=== PATIENT | male | born 1990 | race Caucasian/White ===

== ENCOUNTER 2016-11-30 00:14 | Emergency (ER) | payer BC ==
[2016-11-30] MEDS ORDERED: ALBUTEROL 0.083% 2.5 MG/3 ML VIAL.NEB INHALATION ONE (00:34)
[2016-11-30] MEDS ORDERED: IPRATROPIUM/ALBUTEROL 0.5/3 MG 3 ML AMPUL.NEB INHALATION ONE (01:32)
[2016-11-30] MEDS ORDERED: predniSONE 10 MG TABLET PO ONE (01:32)
--- NOTE | 2016-11-30 02:15 | ER NURSING DOCUMENTATION ---
Nurse's Notes [facility] Name:Jose Antonio Hall Age:26 yrs Sex:Male :1990 Arrival Date:11/30/2016 Time:00:14 Bed1 Private MD:Physician, No Diagnosis:Asthma with Acute Exacerbation Presentation: 11/30 00:16 Presenting complaint: Patient states: pt states he has been short of breath since bw2 arriving from [place]. pt states he has a history of asthma and he forgot his inhaler. Transition of care: patient was not received from another setting of care. 00:16 Acuity: BUFFY 2 bw2 00:16 Method Of Arrival: Walk In bw2 Triage Assessment: 00:23 General: Appears in no apparent distress, Behavior is agitated, anxious. Pain: Denies bw2 pain. Respiratory: Reports shortness of breath at rest Onset: The symptoms/episode began/occurred gradually, the patient has mild shortness of breath. Historical: - Allergies: No known drug Allergies; - Home Meds: 1. Albuterol Inhl - Tetanus: < 10 years. - Ebola Screening: : Patient negative for fever greater than or equal to 101.5 degrees Fahrenheit, and additional compatible Ebola Virus Disease symptoms. Patient denies exposure to infectious person. Patient denies travel to an Ebola-affected area in the 21 days before illness onset. No symptoms or risks identified at this time. . - Immunization history: Flu Vaccine < 1 year Unable to Obtain. - Social history: Smoking status: Patient states was never smoker of tobacco. Screenin:04 Infectious Disease Risk None. Abuse screen: Denies threats or abuse. Nutritional bw2 screening: No deficits noted. Assessment: 02:03 See Triage Assessment done by same RN. Cardiovascular: No deficits noted. Rhythm is bw2 regular. Respiratory: Airway is patent Respiratory effort is labored, Breath sounds are diminished bilaterally. Reports shortness of breath at rest. Vital Signs: 00:23 BP 134 / 90; Pulse 86; Resp 19; Temp 98; Pulse Ox 93% on R/A; Weight 86.18 kg; Pain bw2 0/10; 02:14 BP 133 / 62; Pulse 81; Resp 18; Temp 98(O); Pulse Ox 92% on R/A; Pain 0/10; bw2 ED Course: 00:16 Patient arrived in ED. em2 00:16 Physician, Erica is Private Physician. em2 00:16 Inez Angel is Primary Nurse. bw2 00:17 Triage completed. bw2 00:52 Ramesh Chance MD is Attending Physician. cd 02:04 Valuables Remains with patient Side rails up X2. bw2 11:21 Notified Pharmacy called stating that the dispense tablet number did not match the la order. per Dr Ty valencia to increase dispense tablet number to match the order. Prednisone 2.5 tablets per day- dispense 13 tablets and to disregard .5 tablet. Administered Medications: 01:00 Drug: DuoNeb (Albuterol 2.5 mg, Atrovent 0.5 mg); 3 ml; Route: Nebulizer; bw2 01:41 Follow up: Response: No adverse reaction bw2 01:22 Drug: DuoNeb (Albuterol 2.5 mg, Atrovent 0.5 mg); 3 ml; Route: Nebulizer; bw2 01:41 Follow up: Response: No adverse reaction bw2 01:23 Drug: predniSONE 50 mg; Route: PO; bw2 01:41 Follow up: Response: No adverse reaction bw2 02:13 Drug: Ventolin 2 puffs; Route: Inhalation; bw2 02:14 Follow up: Response: Pharmacy closed - take home med pack bw2 Outcome: 02:05 Discharge ordered by . cd 02:14 Discharged to home ambulatory, with family. bw2 02:14 Condition: good 02:14 Discharge Assessment: Patient awake, alert and oriented x 3. No cognitive and/or functional deficits noted. Patient verbalized understanding of disposition instructions. 02:14 Discharge instructions given to patient, Parent Instructed on discharge instructions, follow up and referral plans. medication usage, Demonstrated understanding of instructions, medications, Prescriptions given X 1. 02:15 Patient left the ED. bw2 Signatures: Ramesh Chance MD MD cd Meinking-brittany, Carlene-brittany em2 Lorena Seay Beth bw2
--- NOTE | 2016-11-30 02:15 | ER PHYSICIAN DOCUMENTATION ---
Physician Documentation [facility] Name:Jose Antonio Hall Age:26 yrs Sex:Male :1990 Arrival Date:11/30/2016 Time:00:14 Bed1 Private MD:Physician, No ED Ramesh Lemus Disposition: 11/30 02:04 Critical Care: not applicable. cd 02:10 Chart complete. Disposition: 11/30/16 02:05 Discharged to Home/Self Care. Impression: Asthma with Acute Exacerbation. - Condition is Fair. - Discharge Instructions: ASTHMA, Acute (Adult), INHALER USE. - Prescriptions for Prednisone 20 mg Oral - take 2.5 tablet by ORAL route once daily for 5 days; 10 tablet. - Medical Reconciliation form form. - Follow up: Private Physician; When: 7 - 10 days; Reason: Recheck today's complaints, Continuance of care. - Problem is an acute exacerbation. - Symptoms are resolved. - Notes: Use the Ventolin Inhaler 2 puffs every 4 hours for 24 hours then every 6 hours for 4 -5 days. Take Prednisone 50mg by mouth every day for 4 more days. Drink plenty of fluids, 1 - 2 quarts of water every day... Do not go to higher elevation. HPI: 00:20 This 26 yrs old Male presents to ER via Walk In with complaints of Shortness cd Of Breath. 00:20 The patient has shortness of breath at rest, with light activity, that occurred at home, and the patient has a history of asthma. Onset: The symptom(s)/episode began/occurred acutely, today. Duration: The symptoms are continuous, and are steadily getting worse. Associated signs and symptoms: Pertinent negatives: chest pain, productive cough, diaphoresis, fever, hemoptysis, nausea, vomiting. Severity of symptoms: At their worst the symptoms were moderate in the emergency department the symptoms are unchanged. The patient has experienced similar episodes in the past. Patient has a history of Asthma and has been SOB and wheezing since arriving from [place]. He forgot his inhaler. Historical: - Allergies: No known drug Allergies; - Home Meds: 1. Albuterol Inhl - Tetanus: < 10 years. - Ebola Screening: : Patient negative for fever greater than or equal to 101.5 degrees Fahrenheit, and additional compatible Ebola Virus Disease symptoms. Patient denies exposure to infectious person. Patient denies travel to an Ebola-affected area in the 21 days before illness onset. No symptoms or risks identified at this time. . - Immunization history: Flu Vaccine < 1 year Unable to Obtain. - Social history: Smoking status: Patient states was never smoker of tobacco. ROS: 00:20 ENT: Negative for injury, pain, epistaxis and discharge. cd Neck: Negative for injury, pain, stiffness and swelling. Cardiovascular: Negative for chest pain, palpitations, edema and pleuritic pain. 00:20 Abdomen/GI: Negative for abdominal pain, nausea, vomiting, diarrhea, constipation, cd distension, melena, hematochezia and hematemesis. 00:20 Constitutional: Positive for poor PO intake, Negative for chills, fever. 00:20 Respiratory: Positive for shortness of breath, wheezing, Negative for cough, hemoptysis, orthopnea, pleurisy, sputum production. Exam: ENT: Nares patent. No nasal discharge, no septal abnormalities noted. Tympanic membranes are normal and external auditory canals are clear. Oropharynx with no redness, swelling, or masses, exudates, or evidence of obstruction, uvula midline. Mucous membranes moist. Neck: Trachea midline, no thyromegaly or masses palpated, and no cervical lymphadenopathy. Supple, full range of motion without nuchal rigidity, or vertebral point tenderness. No Meningismus. Chest/axilla: Normal chest wall appearance and motion. Nontender with no deformity. No lesions are appreciated. 00:20 Abdomen/GI: Soft, non-tender, with normal bowel sounds. No distension or tympany. No cd guarding or rebound. No evidence of tenderness throughout. 00:20 Constitutional: The patient appears alert, awake, non-diaphoretic, non-toxic, well developed, well nourished, anxious. 00:20 Cardiovascular: Rate: normal, Rhythm: regular, Pulses: no pulse deficits are appreciated, Heart sounds: normal. 00:20 Respiratory: mild respiratory distress is noted, Respirations: labored breathing, that is mild, intercostal retractions, are absent, shallow respirations, are not present, tachypnea, that is moderate, Breath sounds: rales, are not appreciated, rhonchi, are not appreciated, wheezing, that is moderate, is scattered, decreased breath sounds, that are moderate, are scattered. Vital Signs: 00:23 BP 134 / 90; Pulse 86; Resp 19; Temp 98; Pulse Ox 93% on R/A; Weight 86.18 kg; Pain bw2 0/10; 02:14 BP 133 / 62; Pulse 81; Resp 18; Temp 98(O); Pulse Ox 92% on R/A; Pain 0/10; bw2 MDM: 00:20 Differential diagnosis: asthma, Bronchitis. Antibiotic administration: Not indicated. cd Data reviewed: vital signs, nurses notes, and as a result, I will continue to observe the patient, administer steroids, prednisone, and give Duoneb treatments. 00:40 Data interpreted: Pulse oximetry: on room air is 86 %. Interpretation: hypoxia. Plan: cd will initiate a nebulizer treatment. 00:52 Patient medically screened. cd 02:10 Counseling: I had a detailed discussion with the patient and/or guardian regarding: the cd historical points, exam findings, and any diagnostic results supporting the discharge/admit diagnosis, the need for outpatient follow up, for a recheck, with the patient's primary care provider, to return to the emergency department if symptoms worsen or persist or if there are any questions or concerns that arise at home. Response to treatment: the patient's symptoms have markedly improved after treatment, the patient's condition has returned to base line, the patient is now symptom free, and as a result, I will discharge patient. 11/30 01:16 Order name: Oxygen; Complete Time: 01:23 cd 11/30 02:12 Order name: Aerochamber - Spacer; Complete Time: 02:13 cd Dispensed Medications: 01:00 Drug: DuoNeb (Albuterol 2.5 mg, Atrovent 0.5 mg); 3 ml; Route: Nebulizer; bw2 01:41 Follow up: Response: No adverse reaction bw2 01:22 Drug: DuoNeb (Albuterol 2.5 mg, Atrovent 0.5 mg); 3 ml; Route: Nebulizer; bw2 :41 Follow up: Response: No adverse reaction bw2 01:23 Drug: predniSONE 50 mg; Route: PO; bw2 :41 Follow up: Response: No adverse reaction bw2 02:13 Drug: Ventolin 2 puffs; Route: Inhalation; bw2 02:14 Follow up: Response: Pharmacy closed - take home med pack bw2 Signatures: Ramesh Chance MD MD cd Wisely, Beth bw2
[2016-11-30] MEDS ORDERED: ALBUTEROL INHALATION ONE (02:25)
[2016-11-30] MEDS ORDERED: INHALER, ASSIST DEVICES 1 PKT EACH ONE (02:25)
== END 2016-11-30 02:15 | disposition home or self-care (01) ==
LOC: ER 00:14
DX: J45.901 Unspecified asthma with (acute) exacerbation (principal); Z79.899 Other long term (current) drug therapy
CPT/HCPCS: 94640; 99284; J7512; J7613; J7620